=== PATIENT | female | born 1965 | race Two or more races ===

== ENCOUNTER 2022-04-23 16:12 | Emergency (ER) | payer SELFPAY ==
[~2022-04-23] VITALS: Ht 152.4 cm; Wt 90.7 kg
[2022-04-23] MEDS ORDERED: VANCOMYCIN PER PHARMACY 0 MG IV SCH (16:45)
[2022-04-23] MEDS ORDERED: PIPERACILLIN-TAZO 4.5GM 100 ML IV ONE (16:45)
[2022-04-23] MEDS ORDERED: VANCOMYCIN 1GM/250ML 250 ML IV ONE (17:45)
[2022-04-23 18:10] LABS: Basophils # (auto) 0.1 10 ^3/uL (0-0.2)
[2022-04-23 18:12] LABS: Basophils % (auto) 0.9 % (0.0-2.0); Eosinophils # (auto) 0 10 ^3/uL (0-0.8); Eosinophils % (auto) 0.1 % (0.0-7.0); Hematocrit 43.2 % (36.0-46.0); Hemoglobin 13.9 g/dL (12.2-16.2); Lymphocytes # (auto) 0.7 10 ^3/uL (0.4-5.4); Lymphocytes % (auto) 5.9 % (10.0-50.0); Mean Corpuscular Hemoglobin 26.8 pg (28.0-32.0); Mean Corpuscular Hgb Conc. 32.1 g/dL (32.0-36.0); Mean Corpuscular Volume 83.5 fL (80.0-100.0); Monocytes # (auto) 0.8 10 ^3/uL (0-1.3); Monocytes % (auto) 6.3 % (0.0-12.0); Neutrophils # (auto) 10.8 10 ^3/uL (1.6-8.6); Neutrophils % (auto) 86.8 % (37.0-80.0); Nucleated Red Blood Cells % 0.2 %; Red Blood Cells 5.18 10^6/uL (4.0-5.20); Red Cell Distribution Width 16.6 % (11.8-14.3); White Blood Cell 12.5 10^3/uL (4.4-10.8)
[2022-04-23 18:41] LABS: Albumin 2.4 g/dL (3.4-5.0); Anion Gap 15 (5-15); Blood Alcohol < 3.0 mg/dL (0-5); Blood Urea Nitrogen 37 mg/dL (7-18); Calcium 12.4 mg/dL (8.5-10.1); Carbon Dioxide 27 mmol/L (21-32); Chloride 100 mmol/L (98-107); Glucose 95 mg/dL (74-106); Magnesium 2.5 mg/dL (1.6-2.6); Sodium 142 mmol/L (136-145)
[2022-04-23 18:43] LABS: Alanine Aminotransferase 19 U/L (13-56); Alkaline Phosphatase 66 U/L (45-117); Aspartate Aminotransferase 18 U/L (15-37); Bilirubin, Total 0.6 mg/dL (0.2-1.0); GFR African American 30 mL/min; GFR Non-African American 25 mL/min; Lactic Acid w/Reflex 2.4 mmol/L (0.4-2.0); Total Protein 7.6 g/dL (6.4-8.2)
[2022-04-23 18:44] LABS: Albumin 2.4 g/dL (3.4-5.0); BUN/Creatinine Ratio 16.1; Calcium 12.4 mg/dL (8.5-10.1); Phosphorus 2.2 mg/dL (2.5-4.90)
[2022-04-23 18:53] LABS: Potassium 2.6 mmol/L (3.5-5.1)
[2022-04-23 18:54] LABS: Potassium 2.6 mmol/L (3.5-5.1)
[2022-04-23] MEDS ORDERED: SODIUM CHLORIDE 0.9% 1,000 ML IV ONE (20:30)
[2022-04-23] MEDS ORDERED: POTASSIUM CHL 20MEQ/100ML 100 ML IV ONE (22:00)
[2022-04-23 22:33] LABS: Urine Bacteria NONE SEEN /hpf (None Seen); Urine Blood TRACE /uL (Negative); Urine Hyaline Cast FEW /lpf (0 - 2); Urine Mucus FEW (None Seen); Urine Specific Gravity 1.019 (1.001-1.035); Urine WBC 3 /hpf (0 - 5)
[2022-04-24 02:48] VITALS: BP 99/64
== END 2022-04-24 03:01 | disposition short-term general hospital (02) ==
LOC: ER 16:12
DX: A41.9 Sepsis, unspecified organism (principal); E87.6 Hypokalemia; G93.40 Encephalopathy, unspecified; Z20.822 Contact with and (suspected) exposure to COVID-19
CPT/HCPCS: 36415; 70450; 70490; 71045; 80053; 80069; 80320; 81001; 83605; 83735; 84484; 85025; 87040; 87426; 93005; 96365; 96366; 96367; 99291; J2543; J3370; J3480; J7030